=== PATIENT | male | born 2005 | race Caucasian/White ===

== ENCOUNTER → 2023-09-28 10:10 | Outpatient (BNVA) | payer BC, SELFPAY | PROVIDERS: Family Provider Nurse Practitioner Family; Visit Provider Emergency Medicine | DX: R68.89 Other general symptoms and signs (principal) | CPT/HCPCS: 87400; 87426 ==

== ENCOUNTER 2025-04-02 10:30 | Emergency (ER) | payer BC, SELFPAY ==
[2025-04-02 10:42] VITALS: BP 124/87; PULSE 85; RESP 18; TEMP 36.4; O2SAT 96; BMI 43.4
[2025-04-02 11:38] LABS: Basophils % 0.2 %; Eosinophils % 0.1 %; Hematocrit 43.6 % (37-53); Lymphocytes # 1.2 10^3/uL (0.8-4.8); Lymphocytes % 12.2 %; Mean Corpuscular HGB Conc 32.8 g/dL (30-55); Mean Corpuscular Hemoglobin 30.5 pg (27-33); Mean Platelet Volume 10.5 fL (7.4-10.4); Monocytes # 0.5 10^3/uL (0.2-0.9); Monocytes % 4.7 %; Neutrophils # 8.42 10^3/uL (1.8-7.7); Neutrophils % 82.5 %; Nucleated Red Blood Cells % 0 %; Platelet Count 218 10^3/cmm (157-399); Red Blood Count 4.69 10^6/uL (3.85-5.65); Red Cell Distribution Width 12.1 % (12.1-15.1)
[2025-04-02 11:59] LABS: Alanine Aminotransferase 38 U/L (0-41); Albumin Level 4.3 g/dL (3.5-5.2); Alkaline Phosphatase 44 U/L (40-130); Anion Gap 14.9 (5-19); Aspartate Amino Transferase 22 U/L (0-40); Blood Urea Nitrogen 13 mg/dL (6-20); Calcium 9.1 mg/dL (8.5-10.5); Carbon Dioxide 21 mmol/L (22-29); Chloride 105 mmol/L (98-107); Creatinine Clr Calc Pharmacy 272.0891; Globulin 2.8 g/dL (1.3-4.6); Glomerular Filtration Rate 170.1 mL/min (90-130); Glucose 121 mg/dL (65-115); Osmolality Calculated 285 mOsm/kg (285-295); Potassium 3.9 mmol/L (3.5-5.1); Sodium 137 mmol/L (136-145); Total Bilirubin 0.4 mg/dL (0.15-1.2); Total Protein 7.1 g/dL (6.6-8.7)
--- NOTE | 2025-04-02 12:13 | W.ED.DIZZY ---
HPI - Dizziness General: Chief Complaint: Dizziness Stated Complaint: nausea - dizziness Time Seen by Provider: 04/02/25 11:56 History of Present Illness: HPI Narrative: 19-year-old male presents emergency room had episode of lightheadedness and dizziness he was bending over doing some work while at work he was bending over standing back upright and then after 1 episode he got very dizzy and went to the office to tell his employer that he was not feeling well had a single episode of nausea vomiting. He is able to reproduce some of his dizziness with turning his head left and right if he remains very still it does not bother him. He had no had recent head trauma no recent fever sweats or chills he has had some itching in his left ear but no drainage. Associated symptoms: Denies chest pain or chills Related Data Home Medications ?Medication ?Instructions ?Recorded ?Confirmed cetirizine 10 mg tablet 10 mg PO DAILY 04/02/25 04/02/25 ergocalciferol (vitamin D2) 1,250 50,000 mcg PO .2XWEEKLY 04/02/25 04/02/25 mcg (50,000 unit) capsule gemfibrozil 600 mg tablet 600 mg PO BID 04/02/25 04/02/25 levothyroxine 25 mcg tablet 25 mcg PO QAM 04/02/25 04/02/25 lisinopril 5 mg tablet 5 mg PO DAILY 04/02/25 04/02/25 metformin 500 mg tablet,extended 500 mg PO DAILY 04/02/25 04/02/25 release 24 hr nortriptyline 10 mg capsule 20 mg PO BEDTIME 04/02/25 04/02/25 pantoprazole 40 mg tablet,delayed 40 mg PO DAILY 04/02/25 04/02/25 release rizatriptan 10 mg disintegrating See Rx Instructions .Route .COMPLEX 04/02/25 04/02/25 tablet testosterone cypionate 200 mg/mL 200 mg IM .[id number] 04/02/25 04/02/25 intramuscular oil Allergies Allergy/AdvReac Type Severity Reaction Status Date / Time No Known Allergies Allergy Verified 09/28/23 10:06 Review of Systems Const: Denies: fever(s) or chills Card: Denies: chest pain Resp: Denies: dyspnea GI: Denies: abdominal pain : Denies: dysuria, urinary frequency or urinary urgency Musc: Denies: neck pain or back pain Skin/Breast: Denies: rash Physical Exam Const: COMMON NORMALS: no acute distress GENERAL APPEARANCE: cooperative and comfortable ORIENTATION/CONSCIOUSNESS: Yes awake, Yes oriented to person, Yes oriented to place and Yes oriented to time HENMT: COMMON NORMALS: normocephalic, atraumatic and hearing grossly normal bilaterally HEAD & SCALP: normocephalic and atraumatic Resp: COMMON NORMALS: normal respiratory effort, No retractions, No use of accessory muscles and clear to auscultation bilaterally AUSCULTATION: clear to auscultation bilaterally Cardio: COMMON NORMALS: regular rate, regular rhythm and No murmurs present (Cardio) RATE: regular rate RHYTHM: regular rhythm GI: COMMON NORMALS: Soft to palpation and No hepatosplenomegaly present AUSCULTATION: Yes normoactive bowel sounds PALPATION: Yes Soft to palpation, No Tenderness to palpation present (GI), No Guarding due to palpation present (GI) and Yes No hepatosplenomegaly present Extremity: COMMON NORMALS: normal to inspection, capillary refill normal, no clubbing, cyanosis or edema, no calf tenderness and no pedal edema Neuro: SENSORIUM/ORIENTATION: Yes oriented to person, Yes oriented to place and Yes oriented to time Skin: COMMON NORMALS: no rashes or lesions noted GENERAL SKIN EXAM: no rashes or lesions noted Course Vital Signs: Vital signs: Vital Signs Temperature 97.6 F 04/02/25 10:42 Pulse Rate 88 04/02/25 14:00 Respiratory Rate 18 04/02/25 10:42 Blood Pressure 127/85 04/02/25 14:00 Pulse Oximetry 99 04/02/25 14:00 Oxygen Delivery Me thod Room Air 04/02/25 13:42 MDM - Dizziness Medical Decision Making Labs and imaging reviewed patient feels fine has no further symptoms I suspect his symptoms that he did get were from an episode of postural hypotension after being leaning over and standing back up multiple times. Return if he has further problems. Lab Data 04/02/25 11:10 04/02/25 11:10 Laboratory Results WBC 10.20 10^3/uL (3.29-11.43) 04/02/25 11:10 RBC 4.69 10^6/uL (3.85-5.65) 04/02/25 11:10 Hgb 14.30 g/dL (11.27-16.99) 04/02/25 11:10 Hct 43.6 % (37-53) 04/02/25 11:10 MCV 93.0 fl (82-101) 04/02/25 11:10 MCH 30.5 pg (27-33) 04/02/25 11:10 MCHC 32.8 g/dL (30-55) 04/02/25 11:10 RDW 12.1 % (12.1-15.1) 04/02/25 11:10 Plt Count 218 10^3/cmm (157-399) 04/02/25 11:10 MPV 10.5 fL (7.4-10.4) H 04/02/25 11:10 Neut % (Auto) 82.5 % 04/02/25 11:10 Lymph % (Auto) 12.2 % 04/02/25 11:10 Union % (Auto) 4.7 % 04/02/25 11:10 Eos % (Auto) 0.1 % 04/02/25 11:10 Baso % (Auto) 0.2 % 04/02/25 11:10 Neut # (Auto) 8.42 10^3/uL (1.8-7.7) H 04/02/25 11:10 Lymph # (Auto) 1.2 10^3/uL (0.8-4.8) 04/02/25 11:10 Union # (Auto) 0.5 10^3/uL (0.2-0.9) 04/02/25 11:10 Eos # (Auto) 0.0 10^3/uL (0.0-0.8) 04/02/25 11:10 Baso # (Auto) 0.0 10^3/uL (0.0-0.1) 04/02/25 11:10 Nucleated RBC % (auto) 0 % 04/02/25 11:10 Nucleated RBCs # 0.0 /100WBC 04/02/25 11:10 Sodium 137 mmol/L (136-145) 04/02/25 11:10 Potassium 3.9 mmol/L (3.5-5.1) 04/02/25 11:10 Chloride 105 mmol/L (98-107) 04/02/25 11:10 Carbon Dioxide 21 mmol/L (22-29) L 04/02/25 11:10 Anion Gap 14.9 (5-19) 04/02/25 11:10 BUN 13 mg/dL (6-20) 04/02/25 11:10 Creatinine 0.6 mg/dL (0.7-1.2) L 04/02/25 11:10 GFR Calculation 170.1 mL/min (90-130) H 04/02/25 11:10 Glucose 121 mg/dL (65-115) H 04/02/25 11:10 Calculated Osmolality 285 mOsm/kg (285-295) 04/02/25 11:10 Calcium 9.1 mg/dL (8.5-10.5) 04/02/25 11:10 Total Bilirubin 0.4 mg/dL (0.15-1.2) 04/02/25 11:10 AST 22 U/L (0-40) 04/02/25 11:10 ALT 38 U/L (0-41) 04/02/25 11:10 Alkaline Phosphatase 44 U/L (40-130) 04/02/25 11:10 Total Protein 7.1 g/dL (6.6-8.7) 04/02/25 11:10 Albumin 4.3 g/dL (3.5-5.2) 04/02/25 11:10 Globulin 2.8 g/dL (1.3-4.6) 04/02/25 11:10 All radiology interpretation(s) finalized by discharge EKG Data EKG 1: Interpretation: EKG 04/02/2025 1328 sinus arrhythmia with significant artifact at the baseline. Rate of 79 ND interval 172 QTc 388 Discharge Plan Discharge Patient Disposition: Home Clinical Impression: Orthostatic hypotension Condition: Stable Prescriptions: No Action cetirizine 10 mg tablet 10 mg PO DAILY levothyroxine 25 mcg tablet 25 mcg PO QAM rizatriptan 10 mg tablet,disintegrating See Rx Instructions .ROUTE .COMPLEX Rx Instructions: Place 1 Tablet (10 mg) inside cheek every 2 hours as needed for Migraine. may repeat in 2 hours; max dose 30mg in 24 hours. gemfibrozil 600 mg tablet 600 mg PO BID pantoprazole 40 mg tablet,delayed release (DR/EC) 40 mg PO DAILY nortriptyline 10 mg capsule 20 mg PO BEDTIME lisinopril 5 mg tablet 5 mg PO DAILY ergocalciferol (vitamin D2) 1,250 mcg (50,000 unit) capsule 50,000 mcg PO .2XWEEKLY testosterone cypionate 200 mg/mL oil 200 mg IM .[id number] metformin 500 mg tablet extended release 24 hr 500 mg PO DAILY Discharge Orders: Discharge ED (Routine); Ordered 04/02/25 Ordered By: Josue Horvath Discharge Diet: Usual diet Discharge Activity: Increase activity as tolerated Patient Instructions: Opioid Safety, Pain Management Activity Restrictions/Additional Instructions: Thank you for choosing [facility] for your healthcare needs today. It is very important that you follow up as instructed or that you return to the Emergency Department should you have concerns or if your condition changes or worsens in any way. You are seen in the emergency room after an episode of dizziness. Your laboratory tests were normal. Suspect the dizziness may have come from repeat bending and standing up which likely triggered a vasovagal reaction lowered your blood pressure as you stood up. Since your symptoms have normalized and your vital signs are normal and there are no clinically significant findings on your laboratory work we can discharge you home at this time. Recommend resting the rest the day follow-up with your primary care doctor as needed. Stand Alone Forms: Work/School Release Print Language: German Coding Level of Care Code ED [employer] for Justine Morales
[2025-04-02] MEDS: prochlorperazine 10 mg/2 mL Inj IVP (12:34)
[2025-04-02] MEDS: sodium chloride 0.9% 1,000 ML 999 ML IV (12:35)
[2025-04-02 12:40] VITALS: BP 119/77; BP 124/96; BP 130/90; PULSE 102; PULSE 92; PULSE 96
--- NOTE | 2025-04-02 13:15 | ECG_ITS ---
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 Measurements Intervals [place] Rate: 79 P: 30 NE: 172 QRS: 9 QRSD: 96 T: 9 QT: 337 QTc: 388 Interpretive Statements SINUS RHYTHM WITH MARKED SINUS ARRHYTHMIA No previous ECG available for comparison Electronically Signed On 04-03-2025 14:57:50 CDT by Anton Schreiber M.D. [email or web address]
[2025-04-02 13:42] VITALS: BP 144/88; PULSE 88; O2SAT 98
[2025-04-02 14:00] VITALS: BP 127/85; PULSE 88; O2SAT 99
--- NOTE | 2025-04-02 15:46 | ECG_ITS ---
[employer] Test Date: 2025-04-02 Pat Name: Isaac Lynne Department: Room: Gender: Male Building Materials Sales Attendant: : 2005 Requested By: Josue Menon Order Number: [id number] Estella MD: Anton Schreiber M.D. Measurements Intervals [place] Rate: 85 P: 28 NM: 176 QRS: 1 QRSD: 108 T: 10 QT: 324 QTc: 386 Interpretive Statements SINUS RHYTHM WITH SINUS ARRHYTHMIA MINIMAL VOLTAGE CRITERIA FOR LVH, CONSIDER NORMAL VARIANT [MEETS CRITERIA IN ONE OF: R(aVL), S(V1), R(V5), R(V5/V6)+S(V1)] No previous ECG available for comparison Electronically Signed On 04-03-2025 15:10:30 CDT by Anton Schreiber M.D. [email or web address]
== END 2025-04-02 14:12 | disposition home or self-care (01) ==
PROVIDERS: Emergency Provider Family Medicine
DX: I95.1 Orthostatic hypotension (principal); Z79.899 Other long term (current) drug therapy; Z79.84 Long term (current) use of oral hypoglycemic drugs; Z79.890 Hormone replacement therapy
CPT/HCPCS: 36415; 80053; 85025; 93005; 96374; 99284; J0780; J7030